=== PATIENT | male | born 1965 | race Caucasian/White ===

== ENCOUNTER 2022-11-18 06:26 | Emergency (ER) | payer OTHER ==
[~2022-11-18] VITALS: Ht 180.3 cm; Wt 83.9 kg
[2022-11-18 06:46] VITALS: BP 167/98
--- NOTE | 2022-11-18 06:50 | NUR ---
BIBS FOR C/O OF 10/10 UPPER BACK/CHEST PAIN RADIATING TO BILATERAL SHOULDER WOKE HIM FROM SLEEP AT 0500 DESCRIBED SHARP AND CONSTANT. -N/V, SOB, DIZZINESS. PT DENIES ANY MEDICAL HISTORY. AWAKE AND ALERT X4 BRADYCARDIC IN 40S AT TRIAGE.
--- NOTE | 2022-11-18 06:55 | NUR ---
20GA TO RIGHT FOREARM AND LEFT HAND ESTABLISHED. BLOOD WORK COLLECTED, GIVEN TO AUDIO VISUAL COLLECTIONS COORDINATOR.
--- NOTE | 2022-11-18 06:56 | NUR ---
EKG DONE AT BEDSIDE
[2022-11-18] MEDS ORDERED: ASPIRIN 325 MG TABLET ONE (06:58)
[2022-11-18] MEDS ORDERED: ASPIRIN 81 MG TAB.CHEW PO ONE (07:00)
--- NOTE | 2022-11-18 07:00 | NUR ---
XR AT BEDSIDE
--- NOTE | 2022-11-18 07:01 | NUR ---
911 called for code stemi
--- NOTE | 2022-11-18 07:07 | NUR ---
REPORT GIVEN TO SUSHMA AT [facility] ER
--- NOTE | 2022-11-18 07:12 | NUR ---
HANDOFF REPORT GIVEN TO [id number] FOR TRANSPORT TO [facility]
[2022-11-18 07:16] LABS: BASOPHILS # (AUTO) 0.2 K/uL (0.0-0.2); BASOPHILS % (AUTO) 1.1 % (0.0-2.0); EOSINOPHILS % (AUTO) 1.9 % (0.0-6.0); HEMATOCRIT 45 % (39-51); HEMOGLOBIN 14.8 g/dL (13.5-17.5); LYMPHOCYTES # (AUTO) 2.7 K/uL (0.8-4.8); LYMPHOCYTES % (AUTO) 15.3 % (20.0-44.0); MEAN CORPUSCULAR HGB CONC 33 g/dl (31.0-36.0); MEAN CORPUSCULAR VOLUME 93 fL (80-96); MONOCYTES # (AUTO) 0.8 K/uL (0.1-1.30); MONOCYTES % (AUTO) 4.7 % (2.0-12.0); NEUTROPHILS # (AUTO) 13.5 K/uL (1.8-8.9); PLATELET COUNT (AUTO) 378 K/uL (150-450); RED BLOOD CELL COUNT(AUTO) 4.84 MIL/uL (4.5-6.0); WHITE BLOOD COUNT (AUTO) 17.5 K/uL (4.3-11.0)
[2022-11-18 07:24] LABS: CALCIUM, SERUM 8.8 mg/dL (8.5-10.1); CARBON DIOXIDE 19 mmol/L (21-32); CHLORIDE 103 mmol/L (98-107); CREATININE 1.4 mg/dL (0.6-1.3); GLUCOSE 207 mg/dL (74-106); POTASSIUM 4.4 mmol/L (3.5-5.1); SODIUM SERUM 135 mmol/L (136-145); UREA NITROGEN, BLOOD 28 mg/dL (7-18)
== END 2022-11-18 07:19 | disposition short-term general hospital (02) ==
LOC: ER 06:29
DX: I21.19 ST elevation (STEMI) myocardial infarction involving other coronary artery of inferior wall (principal); R07.9 Chest pain, unspecified; R42 Dizziness and giddiness; R61 Generalized hyperhidrosis; R11.0 Nausea
CPT/HCPCS: 36415; 71045-TC; 80048-TC; 84484-TC; 85025-TC